=== PATIENT | male | born 1990 | race Caucasian/White ===

== ENCOUNTER 2018-06-11 17:04 | Inpatient (IN) | payer BC, OTHER ==
[2018-06-11 17:23] VITALS: BMI 20.9
--- NOTE | 2018-06-11 19:53 | HP ---
COWS - Scale Resting Pulse: 1= SD 81-100 Sweatin= Beads of Sweat on Face Restless Observation: 0= Sits Still Pupil Size: 0= Normal to Room Light Bone or Joint Aches: 4=Acute Joint/Muscle Pain Runny Nose/ Eye Tearin= None GI Upset > 30mins: 0= None Tremor Observation: 0= None Yawning Observation: 0= None Anxiety or Irritability: 2=Irritable/Anxious Goose Flesh Skin: 0=Smooth Skin COWS Score: 10 CIWA Score - Admission Criteria [facility]ASAS Guidelines: Admission for Medically Managed Detox: Requires at least one of the followin. CIWA greater than 12 2. Seizures within the past 24 hours 3. Delirium tremens within the past 24 hours 4. Hallucinations within the past 24 hours 5. Acute intervention needed for co occurring medical disorder 6. Acute intervention needed for co occurring psychiatric disorder 7. Severe withdrawal that cannot be handled at a lower level of care (continued vomiting, continued diarrhea, abnormal vital signs) requiring intravenous medication and/or fluids 8. Admission ROS [facility] Chief Complaint: SEEKING DETOX FOR C/O WITHDRAWAL SX'S Allergies/Adverse Reactions: Allergies Allergy/AdvReac Type Severity Reaction Status Date / Time No Known Allergies Allergy Verified 06/11/18 17:38 History of Present Illness: 27 Y.O. MALE WITH HX/O OPIOID DEPENDENCE REFERRED BY [facility] FOR REHAB. CLIENT WAS DC FROM [facility] AFTER A 2 MONTH STAY FROM 04/15/2018 TO 06/11/2018 WHERE HE WAS TREATED FOR MRSA BACTREMIA, ENDOCARDITIS, LEFT KNEE SEPTIC ARTHRITIS AND LEFT THIGH ABSCESS AND BILATERAL SEPTIC PULMONARY EMBOLI. WHILE THERE CLIENT REPORTS HE WAS MAINTAINED ON DILAUDID FOR PAIN MGMT. THEN TRANSITIONED TO METHADONE. ON DC PAPERS IT IS NOTED CLIENT WAS GETTING METHADONE AROUND THE CLOCK WITH A TOTAL OF 40 MG DAILY OF METHADONE FOR HIS ADDICTION. HE RECEIVED A TOTAL OF 30 MG TODAY. COWS IS 1O ON ASSESSMENT. D/W CLIENT HE WILL NEED DETOX PRIOR TO REHAB DUE TO THE FACT THAT HE HAS BEEN MAINTAINED ON METHADONE. CLIENT AGREES TO PLAN. REPORTS LONGEST CLEAN TIME 1 YEAR SELF MAINTAINED "MANY YEARS AGO." MOST RECENT CLEAN TIME IS HIS RECENT HOSPITAL STAY OF 7 WEEKS. HE IS CURRENTLY UNDOMICILED, DENIES LEGALS. DENIES HX/O SEIZURE, SI/HI/AVH. PMHX- IVDU, UNDOMICILED, HEPATITIS C NO TXMENT, MRSA BACTERMIA, ENDOCARDITIS, AND PULMONARY EMBOLI PSYCH- ANXIETY, DEPRESSION MEDS- MIRTAZAPINE 75. MG QHS NOTE: CASE D/W DR. HERRERA ..OK TO ADMIT TO DETOX Exam Limitations: No Limitations - Ebola screening Have you traveled outside of the country in the last 21 days: No Have you had contact with anyone from an Ebola affected area: No Have you been sick,other than usual withdrawal symptoms: No Do you have a fever: No - Review of Systems Constitutional: Chills, Malaise, Night Sweats, Changes in sleep EENT: reports: No Symptoms Reported Respiratory: reports: No Symptoms reported Cardiac: reports: No Symptoms Reported GI: reports: Poor Appetite : reports: No Symptoms Reported Musculoskeletal: reports: Back Pain, Joint Pain Integumentary: reports: Flushing, Sweating Neuro: reports: Weakness (GENERALIZED) Endocrine: reports: No Symptoms Reported Hematology: reports: No Symptoms Reported Psychiatric: reports: Anxious, Depressed Other Systems: Reviewed and Negative Patient History - Patient Medical History Hx Anemia: No Hx Asthma: No Hx Chronic Obstructive Pulmonary Disease (COPD): No Hx Cancer: No Hx Cardiac Disorders: No Hx Congestive Heart Failure: No Hx Hypertension: No Hx Hypercholesterolemia: No Hx Pacemaker: No HX Cerebrovascular Accident: No Hx Seizures: No Hx Dementia: No Hx Diabetes: No Hx Gastrointestinal Disorders: No Hx Liver Disease: No Hx Genitourinary Disorders: No Hx Sexually Transmitted Disorders: No Hx Renal Disease (ESRD): No Hx Thyroid Disease: No Hx Human Immunodeficiency Virus (HIV): No Hx Hepatitis C: Yes Hx Depression: Yes Hx Suicide Attempt: No Hx Bipolar Disorder: No Hx Schizophrenia: No Other Medical History: SEE HPI - Patient Surgical History Past Surgical History: Yes Other Surgical History: LEFT KNEE SEPTIC ARTHRITIS REQUIRING WASH OUT Anesthesia Reaction: No - PPD History Previous Implant?: Yes Documented Results: Negative w/o proof Implanted On Prior [facility] Admission?: No PPD to be Administered?: Yes - Smoking Cessation Smoking history: Current every day smoker Have you smoked in the past 12 months: Yes Aproximately how many cigarettes per day: 20 Cigars Per Day: 0 Hx Chewing Tobacco Use: No Initiated information on smoking cessation: Yes 'Breaking Loose' booklet given: 06/11/18 - Substance & Tx. History Hx Alcohol Use: No Hx Substance Use: Yes Substance Use Type: Heroin, Prescribed (METHADONE 40 MG) Hx Substance Use Treatment: No - Substances Abused HEROIN Route: Injection Frequency: Daily Amount used: 4 BAGS Age of first use: 23 Date of Last Use: 04/04/18 METHADONE- RX Route: Oral Frequency: Daily (WHILE HOSPITALIZED) Amount used: 40 MG Age of first use: 27 Date of Last Use: 06/11/18 Family Disease History - Family Disease History Family Disease History: Other: Mother (ANXEITY, DEPRESSION) Admission Physical Exam [facility] - Vital Signs Vital Signs: Vital Signs - 24 hr 06/11/18 17:16 Temperature 97.8 F Pulse Rate 97 H Respiratory 18 Rate Blood Pressure 113/67 - Physical General Appearance: Yes: Appropriately Dressed, Disheveled, Tremorous, Sweating , Anxious, Other (UNKEPT) HEENTM: Yes: EOMI, Normocephalic, Normal Voice, VINCENT (DIALATED PUPILS), Pharynx Normal Respiratory: Yes: Chest Non-Tender, Lungs Clear, Normal Breath Sounds, No Respiratory Distress, No Accessory Muscle Use Neck: Yes: No masses,lesions,Nodules, Supple, Trachea in good position, Other ( RESOLVING ABCESS SCAR TO LEFT NECK) Breast: Yes: Breast Exam Deferred Cardiology: Yes: Regular Rhythm, Regular Rate, S1, S2 Abdominal: Yes: Normal Bowel Sounds, Non Tender, Flat, Soft Genitourinary: Yes: Other (NO C/O OFFERED) Back: Yes: Normal Inspection Musculoskeletal: Yes: Joint Stiffness (PAIN), Other (UNSTEADY GAIT) Extremities: Yes: Normal Capillary Refill, Normal Range of Motion, Non-Tender, Tremors, Other (SCAR TISSUE TO BUE) Neurological: Yes: Fully Oriented, Alert, Motor Strength 5/5, Depressed Affect Integumentary: Yes: Warm, Moist, Track Pereyra, Other (MULTIPLE AREAS TO ARMS RIGHT CHEST WALL, LEFT NECK LEFT KNEE WITH HEALING WOUNDS DUE TO SURGICAL OR REOLVINGS ABCESSES) Lymphatic: Yes: Within Normal Limits - Diagnostic (1) Opioid dependence with withdrawal Current Visit: Yes Status: Acute (2) Nicotine dependence Current Visit: Yes Status: Chronic Qualifiers: Nicotine product type: cigarettes Substance use status: uncomplicated Qualified Code(s): F17.210 - Nicotine dependence, cigarettes, uncomplicated (3) Hepatitis C Current Visit: Yes Status: Chronic Qualifiers: Viral hepatitis chronicity: chronic Hepatic coma status: without hepatic coma Qualified Code(s): B18.2 - Chronic viral hepatitis C (4) History of endocarditis Current Visit: Yes Status: Resolved (5) IVDU (intravenous drug user) Current Visit: Yes Status: Chronic (6) Homeless Current Visit: Yes Status: Chronic (7) History of left knee surgery Current Visit: Yes Status: Resolved (8) MRSA bacteremia Current Visit: Yes Status: Resolved (9) History of pulmonary embolus (PE) Current Visit: Yes Status: Acute (10) Weight loss, unintentional Current Visit: Yes Status: Acute Cleared for Admission [facility] - Detox or Rehab [facility] Level of Care: Medically Managed Detox Regimen/Protocol: Methadone Claeared for Rehab Admission: No S Breath Alcohol Content Breath Alcohol Content: 0 Urine Drug Screen - Results Drug Screen Negative: No Urine Drug Screen Results: MTD-Methadone
[2018-06-11] MEDS ORDERED: guaiFENesin/D-METHORPHAN HB 10 ML UNIT-DOSE CUPS PO PRN (20:27)
[2018-06-11] MEDS ORDERED: MAG HYDROX/AL HYDROX/SIMETH 30 ML UNIT-DOSE CUP PO PRN (20:27)
[2018-06-11] MEDS ORDERED: LOPERAMIDE HCL 2 MG CAPSULE PO PRN (20:27)
[2018-06-11] MEDS ORDERED: IBUPROFEN 400 MG TABLET (FP) PO PRN (20:27)
[2018-06-11] MEDS ORDERED: MAGNESIUM CITRATE 300 ML BOTTLE PO PRN (20:27)
[2018-06-11] MEDS ORDERED: MAGNESIUM HYDROX 2400MG/30ML ORAL SUSPENSION 30 ML CUP PO PRN (20:27)
[2018-06-11] MEDS ORDERED: MENTHOL/PHENOL 1 EACH UD MM PRN (20:27)
[2018-06-11] MEDS ORDERED: P-EPHED 60MG/TRIPROLIDI 2.5MG TABLET PO PRN (20:27)
[2018-06-11] MEDS ORDERED: ACETAMINOPHEN 325 MG TABLET (FP) PO PRN (20:27)
[2018-06-11] MEDS: THIAMINE HCL 100 MG TABLET (FP) PO SCH (21:26)
[2018-06-11] MEDS: diazePAM 5 MG TABLET PO PRN (21:26)
[2018-06-11] MEDS: MELATONIN 5 MG TABLETS PO PRN (22:25)
[2018-06-12] MEDS: diazePAM 5 MG TABLET PO PRN ×5 (01:58→19:47)
[2018-06-12] MEDS ORDERED: METHADONE HCL 10 MG TABLET PO ONE (10:00)
[2018-06-12] MEDS: PRENATAL VITAMINS W/ FOLIC ACID TABLET (FP) PO SCH (10:26)
[2018-06-12] MEDS: NICOTINE 14 MG/24 HOURS TOPICAL PATCH TD SCH (10:26)
[2018-06-12] MEDS: CYCLOBENZAPRINE HCL 10 MG TABLET (FP) PO PRN ×2 (10:28→22:36)
[2018-06-12 11:09] LABS: HEMATOCRIT 28.3 % (35.4-49); HEMOGLOBIN 9.1 GM/dL (11.7-16.9); MCH 26.3 pg (25.7-33.7); MCHC 32.1 g/dl (32.0-35.9); MEAN CELL VOLUME 81.7 fl (80-96); MEAN PLT VOLUME 7.7 fl (7.5-11.1); PLATELET COUNT 278 K/MM3 (134-434); RBC 3.46 M/mm3 (4.00-5.60); RDW 20.6 % (11.9-15.9); WHITE BLOOD COUNT 6.8 K/mm3 (4.0-10.0)
[2018-06-12 11:38] LABS: URINE APPEARANCE CLEAR; URINE BILIRUBIN NEGATIVE (<2.0 mg/dL); URINE COLOR YELLOW; URINE GLUCOSE (UA) NEGATIVE (NEGATIVE); URINE KETONE NEGATIVE (NEGATIVE); URINE LEUK ESTERASE NEGATIVE (NEGATIVE); URINE NITRITE NEGATIVE (NEGATIVE); URINE PROTEIN NEGATIVE (NEGATIVE); URINE UROBILINOGEN NEGATIVE mg/dL (0.2-1.0)
[2018-06-12 11:43] LABS: ALBUMIN 3.4 g/dl (3.4-5.0); ALK PHOS 79 U/L (45-117); ANION GAP 8 MMOL/L (8-16); BILIRUBIN,TOTAL 0.1 mg/dL (0.2-1); BLOOD UREA NITROGEN 20 mg/dL (7-18); CALCIUM 9.2 mg/dL (8.5-10.1); CHLORIDE 101 mmol/L (98-107); CO2 27 mmol/L (21-32); CREATININE 0.7 mg/dL (0.55-1.3); GLUCOSE,RANDOM 108 mg/dL (74-106); POTASSIUM 3.7 mmol/L (3.5-5.1); SGOT/AST 20 U/L (15-37); SGPT/ALT 20 U/L (13-61); SODIUM 136 mmol/L (136-145); TOT PROT 7.8 g/dl (6.4-8.2)
--- NOTE | 2018-06-12 14:07 | CONSULT ---
[facility] Psychiatric Consult - Data Date of interview: 06/12/18 Admission source: [facility] Identifying data: First admission to [facility] for this 27 y/o male seeking detoxification treatment, on , for heroin dependence. Patient is single, no dependents, homeless, unemployed and deprived of income. Substance Abuse History: Confirmed by the patient in my interview. Details in current [facility] report : Smoking history: Current every day smoker. Have you smoked in the past 12 months: Yes. Aproximately how many cigarettes per day: 20. Cigars Per Day: 0. Hx Chewing Tobacco Use: No. Initiated information on smoking cessation: Yes. 'Breaking Loose' booklet given: 06/11/18. - Substance & Tx. History. Hx Alcohol Use: No. Hx Substance Use: Yes. Substance Use Type : Heroin, Prescribed (METHADONE 40 MG). Hx Substance Use Treatment: No. - Substances Abused. HEROIN. Route: Injection. Frequency: Daily. Amount used: 4 BAGS. Age of first use: 23. Date of Last Use: 04/04/18. METHADONE - RX. Route: Oral. Frequency: Daily (WHILE HOSPITALIZED). Amount used: 40 MG. Age of first use: 27. Date of Last Use: 06/11/18 Medical History: Remarkable for a recent history of MRSA (kept for two months at [facility]), septic arthritis of left knee, hepatitis C, bilateral septic pulmonary embolism, abcess of left crural region and endocarditis. Psychiatric History: No reported history of psychiatric hospitalizations. Patient reports past scripts for xanax, valium and methadone. States that he has been diagnosed with MDD and Anxiety Disorder. Has been treated with methadone 40 mg/day for pain management. Mr Cruz denies history of suicide attempts. Physical/Sexual Abuse/Trauma History: Patient denies. Additional Comment: Urine Drug Screen Results: MTD-Methadone. Noted. Mental Status Exam - Mental Status Exam Alert and Oriented to: Time, Place, Person Cognitive Function: Grossly Intact Patient Appearance: Unkempt, Disheveled Mood: Nervous, Withdrawn Affect: Mood Congruent, Constricted Patient Behavior: Fatigued, Cooperative Speech Pattern: Clear Voice Loudness: Normal Thought Process: Goal Oriented Thought Disorder: Not Present Hallucinations: Denies Suicidal Ideation: Denies Homicidal Ideation: Denies Insight/Judgement: Poor Sleep: Well Appetite: Good Muscle strength/Tone: Normal (no complaint of rigidity or weakness) Gait/Station: Normal Psychiatric Findings - Problem List ([place] 1, 2,3) (1) Opioid dependence with withdrawal Current Visit: Yes Status: Acute (2) Nicotine dependence Current Visit: Yes Status: Chronic Qualifiers: Nicotine product type: cigarettes Substance use status: uncomplicated Qualified Code(s): F17.210 - Nicotine dependence, cigarettes, uncomplicated - Initial Treatment Plan Initial Treatment Plan: Psychoeducation. Sleep hygiene. Detoxification in progress. NA meetings. Support. Observation.
--- NOTE | 2018-06-12 15:40 | PN ---
BHS COWS - Scale Resting Pulse: 2= ND 101-120 Sweatin= Chills/Flushing Restless Observation: 1= Difficult to Sit Still Pupil Size: 0= Normal to Room Light Bone or Joint Aches: 0= None Runny Nose/ Eye Tearin= Nasal Congestion GI Upset > 30mins: 0= None Tremor Observation of Outstretched Hands: 2= Slight Tremor Visible Yawning Observation: 1= 1-2x During Session Anxiety or Irritability: 2=Irritable/Anxious Goose Flesh Skin: 3=Piloerection COWS Score: 13 BHS Progress Note (SOAP) Subjective: Tremors, Sweating. Objective: PATIENT A & O X 3, OBSERVED AMBULATING ON UNIT. IN NO ACUTE DISTRESS. 06/12/18 15:39 Vital Signs Temperature 97.8 F 06/12/18 14:11 Pulse Rate 101 H 06/12/18 14:11 Respiratory Rate 18 06/12/18 14:11 Blood Pressure 114/73 06/12/18 14:11 O2 Sat by Pulse Oximetry (%) Laboratory Tests 06/12/18 06/12/18 06/12/18 07:30 07:30 07:30 WBC 6.8 RBC 3.46 L Hgb 9.1 L Hct 28.3 L MCV 81.7 MCH 26.3 MCHC 32.1 RDW 20.6 H Plt Count 278 MPV 7.7 Sodium 136 Potassium 3.7 Chloride 101 Carbon Dioxide 27 Anion Gap 8 BUN 20 H Creatinine 0.7 Creat Clearance w eGFR > 60 Random Glucose 108 H Calcium 9.2 Total Bilirubin 0.1 L AST 20 ALT 20 Alkaline Phosphatase 79 Total Protein 7.8 Albumin 3.4 Urine Color Urine Appearance Urine pH Ur Specific [place] Urine Protein Urine Glucose (UA) Urine Ketones Urine Blood Urine Nitrite Urine Bilirubin Urine Urobilinogen Ur Leukocyte Esterase RPR Titer Nonreactive 06/12/18 08:30 WBC RBC Hgb Hct MCV MCH MCHC RDW Plt Count MPV Sodium Potassium Chloride Carbon Dioxide Anion Gap BUN Creatinine Creat Clearance w eGFR Random Glucose Calcium Total Bilirubin AST ALT Alkaline Phosphatase Total Protein Albumin Urine Color Yellow Urine Appearance Clear Urine pH 7.0 Ur Specific [place] 1.024 Urine Protein Negative Urine Glucose (UA) Negative Urine Ketones Negative Urine Blood Negative Urine Nitrite Negative Urine Bilirubin Negative Urine Urobilinogen Negative Ur Leukocyte Esterase Negative RPR Titer LABS NOTED. Assessment: 06/12/18 15:40 WITHDRAWAL SYMPTOMS. Plan: CONTINUE DETOX.
[2018-06-12] MEDS: IBUPROFEN 600 MG TABLET (FP) PO PRN (18:21)
--- NOTE | 2018-06-12 19:16 | PN ---
Isa Progress Note Note: Psychiatry Attending's note (addendum) : Patient has approached travel writer, around 5 PM, with complaint of insomnia. Mr Anthony stated that he used to be prescribed mirtazapine and quetiapine. Endorsed preference for seroquel. Side effects/benefits were discussed with patient. Intervention : Seroquel 50 mg po hs. Ordered with patient's informed consent (verbal). Will follow.
[2018-06-12] MEDS: QUEtiapine FUMARATE 50 MG TABLET PO SCH (22:36)
[2018-06-12] MEDS: THIAMINE HCL 100 MG TABLET (FP) PO SCH (22:36)
[2018-06-12] MEDS: MELATONIN 5 MG TABLETS PO PRN (22:36)
[2018-06-13] MEDS: diazePAM 5 MG TABLET PO PRN ×4 (01:49→20:56)
[2018-06-13] MEDS ORDERED: METHADONE HCL 10 MG TABLET (FOR DETOX USE ONLY) PO ONE (10:00)
[2018-06-13] MEDS: PRENATAL VITAMINS W/ FOLIC ACID TABLET (FP) PO SCH (10:35)
[2018-06-13] MEDS: NICOTINE 14 MG/24 HOURS TOPICAL PATCH TD SCH (10:35)
[2018-06-13] MEDS: CYCLOBENZAPRINE HCL 10 MG TABLET (FP) PO PRN ×2 (10:37→22:27)
--- NOTE | 2018-06-13 13:51 | PN ---
BHS COWS - Scale Resting Pulse: 1= CA 81-100 Sweatin= Chills/Flushing Restless Observation: 3= Extraneous Movement Pupil Size: 0= Normal to Room Light Bone or Joint Aches: 2= Severe Diffuse Aches Runny Nose/ Eye Tearin= Runny Nose/Eyes GI Upset > 30mins: 2= Nausea/Diarrhea Tremor Observation of Outstretched Hands: 2= Slight Tremor Visible Yawning Observation: 0= None Anxiety or Irritability: 2=Irritable/Anxious Goose Flesh Skin: 0=Smooth Skin COWS Score: 15 BHS Progress Note (SOAP) Subjective: Anxious, sweating, interrupted sleep Objective: 06/13/18 13:46 Last Vital Signs Temp Pulse Resp BP Pulse Ox 98.0 F 83 18 93/53 L 06/13/18 13:18 06/13/18 13:18 06/13/18 13:18 06/13/18 13:18 Hypotension noted: b/p 93/53 Laboratory Tests 06/12/18 06/12/18 06/12/18 07:30 07:30 07:30 WBC 6.8 RBC 3.46 L Hgb 9.1 L Hct 28.3 L MCV 81.7 MCH 26.3 MCHC 32.1 RDW 20.6 H Plt Count 278 MPV 7.7 Sodium 136 Potassium 3.7 Chloride 101 Carbon Dioxide 27 Anion Gap 8 BUN 20 H Creatinine 0.7 Creat Clearance w eGFR > 60 Random Glucose 108 H Calcium 9.2 Total Bilirubin 0.1 L AST 20 ALT 20 Alkaline Phosphatase 79 Total Protein 7.8 Albumin 3.4 Urine Color Urine Appearance Urine pH Ur Specific [place] Urine Protein Urine Glucose (UA) Urine Ketones Urine Blood Urine Nitrite Urine Bilirubin Urine Urobilinogen Ur Leukocyte Esterase RPR Titer Nonreactive 06/12/18 08:30 WBC RBC Hgb Hct MCV MCH MCHC RDW Plt Count MPV Sodium Potassium Chloride Carbon Dioxide Anion Gap BUN Creatinine Creat Clearance w eGFR Random Glucose Calcium Total Bilirubin AST ALT Alkaline Phosphatase Total Protein Albumin Urine Color Yellow Urine Appearance Clear Urine pH 7.0 Ur Specific [place] 1.024 Urine Protein Negative Urine Glucose (UA) Negative Urine Ketones Negative Urine Blood Negative Urine Nitrite Negative Urine Bilirubin Negative Urine Urobilinogen Negative Ur Leukocyte Esterase Negative RPR Titer Labs reviewed: bun 20, anemia (most likely iron deficiency) Assessment: 06/13/18 13:47 Withdrawal symptoms Noted with hypotension, azotemia and anemia Plan: Continue detox Hypotension: asymptomatic, encouraged PO hydration (mostly water) Azotemia: encouraged PO water intake Anemia: start ferrous sulfate 325mg PO BID, colace 100mg PO qhs to prevent constipation
[2018-06-13] MEDS: IBUPROFEN 600 MG TABLET (FP) PO PRN (16:40)
[2018-06-13] MEDS: FERROUS SO4 325 MG TABLET (FP) PO SCH (16:41)
[2018-06-13] MEDS: MELATONIN 5 MG TABLETS PO PRN (22:27)
[2018-06-13] MEDS: DOCUSATE SODIUM 100 MG CAPSULE (FP) PO SCH (22:27)
[2018-06-13] MEDS: QUEtiapine FUMARATE 50 MG TABLET PO SCH (22:27)
[2018-06-13] MEDS: THIAMINE HCL 100 MG TABLET (FP) PO SCH (22:27)
[2018-06-13] MEDS ORDERED: diphenhydrAMINE HCL 25 MG CAPSULE (FP) PO PRN (23:12)
[2018-06-14] MEDS: diazePAM 5 MG TABLET PO PRN ×4 (03:20→19:36)
[2018-06-14] MEDS ORDERED: METHADONE HCL 5 MG TABLET (FOR DETOX USE ONLY) PO ONE (10:00)
[2018-06-14] MEDS: PRENATAL VITAMINS W/ FOLIC ACID TABLET (FP) PO SCH (10:30)
[2018-06-14] MEDS: FERROUS SO4 325 MG TABLET (FP) PO SCH ×2 (10:31→16:53)
[2018-06-14] MEDS: NICOTINE 14 MG/24 HOURS TOPICAL PATCH TD SCH (10:32)
[2018-06-14] MEDS: NICOTINE POLACRILEX 2 MG GUM BC PRN ×2 (10:41→17:44)
--- NOTE | 2018-06-14 11:04 | PN ---
BHS Progress Note (SOAP) Subjective: body aches joints pain tremor irritable Objective: 06/14/18 11:02 Vital Signs Temperature 98.1 F 06/14/18 09:21 Pulse Rate 84 06/14/18 09:21 Respiratory Rate 18 06/14/18 09:21 Blood Pressure 111/65 06/14/18 09:21 O2 Sat by Pulse Oximetry (%) Laboratory Last Values WBC 6.8 K/mm3 (4.0-10.0) 06/12/18 07:30 RBC 3.46 M/mm3 (4.00-5.60) L 06/12/18 07:30 Hgb 9.1 GM/dL (11.7-16.9) L 06/12/18 07:30 Hct 28.3 % (35.4-49) L 06/12/18 07:30 MCV 81.7 fl (80-96) 06/12/18 07:30 MCH 26.3 pg (25.7-33.7) 06/12/18 07:30 MCHC 32.1 g/dl (32.0-35.9) 06/12/18 07:30 RDW 20.6 % (11.9-15.9) H 06/12/18 07:30 Plt Count 278 K/MM3 (134-434) 06/12/18 07:30 MPV 7.7 fl (7.5-11.1) 06/12/18 07:30 Sodium 136 mmol/L (136-145) 06/12/18 07:30 Potassium 3.7 mmol/L (3.5-5.1) 06/12/18 07:30 Chloride 101 mmol/L (98-107) 06/12/18 07:30 Carbon Dioxide 27 mmol/L (21-32) 06/12/18 07:30 Anion Gap 8 MMOL/L (8-16) 06/12/18 07:30 BUN 20 mg/dL (7-18) H 06/12/18 07:30 Creatinine 0.7 mg/dL (0.55-1.3) 06/12/18 07:30 Creat Clearance w eGFR > 60 (>60) 06/12/18 07:30 Random Glucose 108 mg/dL (74-106) H 06/12/18 07:30 Calcium 9.2 mg/dL (8.5-10.1) 06/12/18 07:30 Total Bilirubin 0.1 mg/dL (0.2-1) L 06/12/18 07:30 AST 20 U/L (15-37) 06/12/18 07:30 ALT 20 U/L (13-61) 06/12/18 07:30 Alkaline Phosphatase 79 U/L (45-117) 06/12/18 07:30 Total Protein 7.8 g/dl (6.4-8.2) 06/12/18 07:30 Albumin 3.4 g/dl (3.4-5.0) 06/12/18 07:30 Urine Color Yellow 06/12/18 08:30 Urine Appearance Clear 06/12/18 08:30 Urine pH 7.0 (5.0-8.0) 06/12/18 08:30 Ur Specific [place] 1.024 (1.010-1.035) 06/12/18 08:30 Urine Protein Negative (NEGATIVE) 06/12/18 08:30 Urine Glucose (UA) Negative (NEGATIVE) 06/12/18 08:30 Urine Ketones Negative (NEGATIVE) 06/12/18 08:30 Urine Blood Negative (NEGATIVE) 06/12/18 08:30 Urine Nitrite Negative (NEGATIVE) 06/12/18 08:30 Urine Bilirubin Negative (<2.0 mg/dL) 06/12/18 08:30 Urine Urobilinogen Negative mg/dL (0.2-1.0) 06/12/18 08:30 Ur Leukocyte Esterase Negative (NEGATIVE) 06/12/18 08:30 RPR Titer Nonreactive (NONREACTIVE) 06/12/18 07:30 lab noted Assessment: 06/14/18 11:03 withdrawal sx Plan: continue detox
[2018-06-14] MEDS: hydrOXYzine PAMOATE 25 MG CAPSULE (FP) PO PRN (19:38)
[2018-06-14] MEDS: IBUPROFEN 600 MG TABLET (FP) PO PRN (19:38)
[2018-06-14] MEDS: THIAMINE HCL 100 MG TABLET (FP) PO SCH (22:25)
[2018-06-14] MEDS: DOCUSATE SODIUM 100 MG CAPSULE (FP) PO SCH (22:25)
[2018-06-14] MEDS: QUEtiapine FUMARATE 50 MG TABLET PO SCH (22:25)
[2018-06-14] MEDS: CYCLOBENZAPRINE HCL 10 MG TABLET (FP) PO PRN (22:25)
[2018-06-14] MEDS: MELATONIN 5 MG TABLETS PO PRN (22:26)
[2018-06-15] MEDS: hydrOXYzine PAMOATE 25 MG CAPSULE (FP) PO PRN (00:29)
[2018-06-15 09:40] VITALS: BP 107/70; PULSE 108; TEMP 97.4
[2018-06-15] MEDS ORDERED: METHADONE HCL 5 MG TABLET (FOR DETOX USE ONLY) PO ONE (10:00)
[2018-06-15] MEDS: IBUPROFEN 600 MG TABLET (FP) PO PRN (10:31)
[2018-06-15] MEDS: FERROUS SO4 325 MG TABLET (FP) PO SCH (10:31)
[2018-06-15] MEDS: PRENATAL VITAMINS W/ FOLIC ACID TABLET (FP) PO SCH (10:31)
[2018-06-15] MEDS: NICOTINE 14 MG/24 HOURS TOPICAL PATCH TD SCH (10:32)
[2018-06-15] MEDS: CYCLOBENZAPRINE HCL 10 MG TABLET (FP) PO PRN (10:32)
--- NOTE | 2018-06-15 13:45 | DS ---
[facility] Detox Discharge Summary Admission Date: 06/11/18 Discharge Date: 06/15/18 - History Present History: Opioid Dependence Additional Comments: PATIENT DOES NOT WISH TO REMAIN TO COMPLETE DETOX REGIMEN. RISKS OF LEAVING DETOX UNIT AGAINST MEDICAL ADVICE AND PRIOR TO COMPLETION OF DETOX REGIMEN EXPLAINED TO PATIENT. PATIENT ADVISED TO GO IMMEDIATELY TO NEAREST ER SHOULD ANY INTOLERABLE DETOX SYMPTOMS DEVELOP AT ANY TIME. PATIENT VERBALIZED UNDERSTANDING OF ALL INFORMATION / RECOMMENDATIONS PRESENTED TO HIM PRIOR TO DEPARTURE FROM DETOX UNIT. PATIENT LEFT DETOX UNIT IN STABLE MEDICAL CONDITION. Pertinent Past History: Hep, C, History of Depression, History of MRSA Bactremia, History of Endocarditis, History of Left Knee Septic Arthritis, History of Left Thigh Abscess, History of Bilateral Septic Pulmonary Emboli., Intravenous Drug User, History of Surgery Of Left Knee, Nicotine Dependence, Weight Loss. - Physical Exam Results Vital Signs: Vital Signs Temperature 97.4 F L 06/15/18 09:39 Pulse Rate 108 H 06/15/18 09:39 Respiratory Rate 18 06/15/18 09:39 Blood Pressure 107/70 06/15/18 09:39 O2 Sat by Pulse Oximetry (%) Pertinent Admission Physical Exam Findings: WITHDRAWAL SYMPTOMS. Laboratory Tests 06/12/18 06/12/18 06/12/18 07:30 07:30 07:30 WBC 6.8 RBC 3.46 L Hgb 9.1 L Hct 28.3 L MCV 81.7 MCH 26.3 MCHC 32.1 RDW 20.6 H Plt Count 278 MPV 7.7 Sodium 136 Potassium 3.7 Chloride 101 Carbon Dioxide 27 Anion Gap 8 BUN 20 H Creatinine 0.7 Creat Clearance w eGFR > 60 Random Glucose 108 H Calcium 9.2 Total Bilirubin 0.1 L AST 20 ALT 20 Alkaline Phosphatase 79 Total Protein 7.8 Albumin 3.4 Urine Color Urine Appearance Urine pH Ur Specific [place] Urine Protein Urine Glucose (UA) Urine Ketones Urine Blood Urine Nitrite Urine Bilirubin Urine Urobilinogen Ur Leukocyte Esterase RPR Titer Nonreactive 06/12/18 08:30 WBC RBC Hgb Hct MCV MCH MCHC RDW Plt Count MPV Sodium Potassium Chloride Carbon Dioxide Anion Gap BUN Creatinine Creat Clearance w eGFR Random Glucose Calcium Total Bilirubin AST ALT Alkaline Phosphatase Total Protein Albumin Urine Color Yellow Urine Appearance Clear Urine pH 7.0 Ur Specific [place] 1.024 Urine Protein Negative Urine Glucose (UA) Negative Urine Ketones Negative Urine Blood Negative Urine Nitrite Negative Urine Bilirubin Negative Urine Urobilinogen Negative Ur Leukocyte Esterase Negative RPR Titer LABS NOTED. - Treatment Hospital Course: Detoxed Safely - Medication Discharge Medications: Ambulatory Orders NK [No Known Home Medication] 06/11/18 - Diagnosis (1) Opioid dependence with withdrawal Status: Acute (2) Hepatitis C Status: Chronic Qualifiers: Viral hepatitis chronicity: chronic Hepatic coma status: without hepatic coma Qualified Code(s): B18.2 - Chronic viral hepatitis C (3) IVDU (intravenous drug user) Status: Chronic (4) Nicotine dependence Status: Chronic Qualifiers: Nicotine product type: cigarettes Substance use status: uncomplicated Qualified Code(s): F17.210 - Nicotine dependence, cigarettes, uncomplicated (5) History of endocarditis Status: Chronic (6) Homeless Status: Chronic (7) History of left knee surgery Status: Resolved (8) MRSA bacteremia Status: Resolved (9) Weight loss, unintentional Status: Acute - AMA Did Patient Leave Against Medical Advice: Yes (PATIENT DID NOT WISH TO REMAIN TO COMPLETE DETOX REGIMEN.)
--- NOTE | 2018-06-15 13:55 | PN ---
BHS Progress Note (SOAP) Subjective: Anxious. Objective: PATIENT A & O X 3, OBSERVED AMBULATING ON UNIT WITH ASSISTANCE OF A CANE. IN NO ACUTE DISTRESS. 06/15/18 13:53 Vital Signs Temperature 97.4 F L 06/15/18 09:39 Pulse Rate 108 H 06/15/18 09:39 Respiratory Rate 18 06/15/18 09:39 Blood Pressure 107/70 06/15/18 09:39 O2 Sat by Pulse Oximetry (%) Laboratory Tests 06/12/18 06/12/18 06/12/18 07:30 07:30 07:30 WBC 6.8 RBC 3.46 L Hgb 9.1 L Hct 28.3 L MCV 81.7 MCH 26.3 MCHC 32.1 RDW 20.6 H Plt Count 278 MPV 7.7 Sodium 136 Potassium 3.7 Chloride 101 Carbon Dioxide 27 Anion Gap 8 BUN 20 H Creatinine 0.7 Creat Clearance w eGFR > 60 Random Glucose 108 H Calcium 9.2 Total Bilirubin 0.1 L AST 20 ALT 20 Alkaline Phosphatase 79 Total Protein 7.8 Albumin 3.4 Urine Color Urine Appearance Urine pH Ur Specific [place] Urine Protein Urine Glucose (UA) Urine Ketones Urine Blood Urine Nitrite Urine Bilirubin Urine Urobilinogen Ur Leukocyte Esterase RPR Titer Nonreactive 06/12/18 08:30 WBC RBC Hgb Hct MCV MCH MCHC RDW Plt Count MPV Sodium Potassium Chloride Carbon Dioxide Anion Gap BUN Creatinine Creat Clearance w eGFR Random Glucose Calcium Total Bilirubin AST ALT Alkaline Phosphatase Total Protein Albumin Urine Color Yellow Urine Appearance Clear Urine pH 7.0 Ur Specific [place] 1.024 Urine Protein Negative Urine Glucose (UA) Negative Urine Ketones Negative Urine Blood Negative Urine Nitrite Negative Urine Bilirubin Negative Urine Urobilinogen Negative Ur Leukocyte Esterase Negative RPR Titer LABS NOTED. Assessment: 06/15/18 13:54 WITHDRAWAL SYMPTOMS. Plan: CONTINUE DETOX.
[2018-06-16] MEDS ORDERED: METHADONE HCL 10 MG TABLET (FOR DETOX USE ONLY) PO ONE (10:00)
[2018-06-17] MEDS ORDERED: METHADONE HCL 5 MG TABLET (FOR DETOX USE ONLY) PO ONE (06:00)
== END 2018-06-15 11:20 | disposition left against medical advice (07) | DRG 894 ==
LOC: YASAS 17:04 → Y5N 19:12 → Y3N 20:42
PROVIDERS: ADMIT Psychiatry & Neurology Psychiatry
PROC: HZ2ZZZZ Detoxification Services for Substance Abuse Treatment (ICD-10-PCS; principal; 2018-06-11)
DX: F11.23 Opioid dependence with withdrawal (principal); F17.210 Nicotine dependence, cigarettes, uncomplicated; I95.9 Hypotension, unspecified; B18.2 Chronic viral hepatitis C; R79.89 Other specified abnormal findings of blood chemistry; D50.9 Iron deficiency anemia, unspecified; R63.4 Abnormal weight loss; Z86.711 Personal history of pulmonary embolism; Z68.20 Body mass index [BMI] 20.0-20.9, adult; Z86.79 Personal history of other diseases of the circulatory system; Z86.14 Personal history of Methicillin resistant Staphylococcus aureus infection; Z59.0 Homelessness
CPT/HCPCS: 36415; 80053; 81003; 85027; 86593